=== PATIENT | female | born 1975 | race Caucasian/White ===

== ENCOUNTER 2021-06-29 06:52 | Day surgery (SDC) | payer OTHER | END 2021-06-29 12:05 | disposition home or self-care (01) | LOC: CIR.AMB 06:52 | PROVIDERS: ATTEND Obstetrics & Gynecology Maternal & Fetal Medicine | DX: N84.0 Polyp of corpus uteri (principal); Z20.822 Contact with and (suspected) exposure to COVID-19 ==